=== PATIENT | female | born 1995 | race Two or more races ===

== ENCOUNTER → 2025-03-03 | Outpatient (CLI) | payer BC, SELFPAY ==
--- NOTE | 2025-03-03 09:30 | XR_ITS ---
Examination: Breast ultrasound, unilateral, right complete Date and time of exam: March 03, 2025 0942 hours INDICATIONS: Unilateral right nipple discharge and pain lateral breast 2 weeks, palpable mass upper inner quadrant right breast redness and swelling in the lower inner quadrant right breast, bilateral breast pain, palpable lumps both breasts noted on examination by physician February 16, 2025 Technique: Real-time alexander scale ultrasonographic imaging performed right breast including all 4 quadrants as well as nipple retroareolar and axillary region. Findings: Dilated ducts throughout the breasts No cystic or solid mass IMPRESSION: BI-RADS Category 2: Benign findings
--- NOTE | 2025-03-03 10:15 | XR_ITS ---
Examination: Diagnostic digital mammography, unilateral, right Computer aided detection 3-D breast Tomosynthesis, unilateral Date and time of exam: March 03, 2025 1002 hours INDICATIONS: Palpable lump detected in the right breast on clinical breast examination by physician February 16, 2025, bilateral breast pain Technique: Nonmagnified MLO, CC views of the right breast have been obtained, reconstructed from 3-D Tomosynthesis images. R2 computer aided detection program utilized for evaluation of suspicious masses and/or abnormal calcifications. 3-D Tomosynthesis images obtained. Findings: The breast is heterogeneously dense, which may obscure small masses No definite suspicious mass Impression: BI-RADS category 2: Benign findings If palpable abnormality persists as well as breast pain, recommend 3-6 month follow-up bilateral breast sonography
== END | disposition home or self-care (01) ==
PROVIDERS: PCP Internal Medicine; Referring Provider Nurse Practitioner Family; Visit Provider Nurse Practitioner Family
DX: R92.321 Mammographic fibroglandular density, right breast (principal)
CPT/HCPCS: 76641; 77061; 77065; G0279

== ENCOUNTER → 2025-03-19 | Outpatient (CLI) | payer BC, SELFPAY | END | disposition home or self-care (01) | LOC: CDIM 08:09 | PROVIDERS: Referring Provider Internal Medicine; Visit Provider Internal Medicine | DX: Z53.8 Procedure and treatment not carried out for other reasons (principal) ==

== ENCOUNTER → 2025-03-19 | Outpatient (CLI) | payer BC, SELFPAY ==
[2025-03-19 09:52] LABS: Basophils % (Auto) 1 % (0-2.5); Eosinophils # (Auto) 0.1 Thou/mm3 (0.0-0.5); Eosinophils % (Auto) 1 % (0-10); Hematocrit 39.5 % (36.0-46.0); Hemoglobin 13.2 g/dL (12.0-16.0); Immature Granulocytes % (Auto) 0 % (0-0); Immature Granulocytes Auto 0.01 Thou/mm3 (0.00-0.00); Lymphocytes # (Auto) 2.1 Thou/mm3 (1.0-4.8); Lymphocytes % (Auto) 35 % (10-50); Mean Corpuscular HGB Conc 33.4 g/dl (31.0-37.0); Mean Corpuscular Hemoglobin 29.6 pg (25.0-35.0); Mean Corpuscular Volume 89 fL (80-100); Monocytes # (Auto) 0.4 Thou/mm3 (0.0-0.8); Monocytes % (Auto) 7 % (0-12); Neutrophils # (Auto) 3.4 Thou/mm3 (1.8-7.7); Neutrophils % (Auto) 56 % (37-80); Nucleated Red Blood Cell % 0 /100 WBC (0); Platelet Count 264 Thou/mm3 (140-440); RDW Standard Deviation 45.1 fL (36.4-46.3); Red Blood Count 4.46 Miln/mm3 (4.00-5.20)
[2025-03-19 09:59] LABS: Glucose Estimated Average 100 mg/dL (80-131); Hemoglobin A1C 5.1 % Hgb (4.8-6.0)
[2025-03-19 10:13] LABS: Follicle Stimulating Hormone 6.27 mIU/mL (See Note); Vitamin B12 298 pg/mL (211-911); Vitamin D 25 Hydroxy Total 28.1 ng/mL (7.3-40.2)
[2025-03-19 10:31] LABS: Alanine Aminotransferase < 7 U/L (10-49); Albumin, Serum 4.6 gm/dL (3.5-5.0); Albumin/Globulin Ratio 1.6 (1.2-2.2); Alkaline Phosphatase 65 U/L (46-116); Anion Gap 7 (7-16); Aspartate Amino Transferase 10 U/L (0-34); BUN/Creatinine Ratio 14 Ratio (12-20); Bilirubin,Total 0.4 mg/dL (0.3-1.2); Blood Urea Nitrogen 11 mg/dL (9-23); Calcium 9.2 mg/dL (8.3-10.6); Calcium (Corrected) 9.2 mg/dL (8.5-10.1); Carbon Dioxide 25.6 mMol/L (20.0-31.0); Cardiac Risk Estimate 3.1 RATIO (3.7-5.6); Chloride 109 mMol/L (98-107); Cholesterol 119 mg/dL (132-200); Creatinine (Component) 0.8 mg/dL (0.6-1.3); Globulin 2.9 gm/dL (2.3-3.5); Glucose 89 mg/dL (74-106); HDL Cholesterol 39 mg/dL (40-60); LDL Cholesterol,Calculated 70 mg/dL (0-130); Osmolality,Calculated 281 (275-295); Sodium 142 mMol/L (136-145); Total Protein 7.5 gm/dL (5.7-8.2); Triglycerides 49 mg/dL (30-150); Uric Acid 4.6 mg/dL (3.1-7.8); eGFR > 60 See Note
[2025-03-29 07:27] LABS: Estrogen, Total, Serum* 111 pg/mL; Luteinizing Hormone* 3.4 mIU/mL; Progesterone,LC/MS* <0.1 ng/mL; Prolactin* 5.4 ng/mL
== END | disposition home or self-care (01) ==
LOC: COPL 09:03
PROVIDERS: PCP Internal Medicine; Referring Provider Internal Medicine; Visit Provider Internal Medicine
DX: O92.6 Galactorrhea (principal)
CPT/HCPCS: 36415; 80053; 80061; 81001; 82306; 82607; 82672; 83001; 83002; 83036; 84144; 84146; 84443; 84550; 85025